=== PATIENT | female | born 1975 | race Caucasian/White ===

== ENCOUNTER 2020-02-25 08:17 | Outpatient (REF) | payer OTHER, SELFPAY ==
[2020-02-25 08:39] LABS: COVID-19 Test Negative (Negative)
== END 2020-02-25 08:18 | disposition home or self-care (01) ==
LOC: HO.LAB 08:17
PROVIDERS: PCP Internal Medicine; Visit Provider Internal Medicine
DX: Z20.828 Contact with and (suspected) exposure to other viral communicable diseases (principal)
CPT/HCPCS: 87635

== ENCOUNTER 2020-04-02 07:03 | Outpatient (REF) | payer OTHER, SELFPAY | END 2020-04-02 07:04 | disposition home or self-care (01) | LOC: HO.LAB 07:03 | PROVIDERS: Visit Provider Internal Medicine | DX: Z20.828 Contact with and (suspected) exposure to other viral communicable diseases (principal) | CPT/HCPCS: C9803; U0003 ==